=== PATIENT | male | born 1975 | race Caucasian/White ===

== ENCOUNTER 2024-07-07 08:13 | Day surgery (SDC) | payer OTHER ==
[~2024-07-07] VITALS: Ht 177.8 cm; Wt 96.5 kg
[~2024-07-07 08:13] MED LIST: Lactated Ringer's 1,000 ML IV ONE; propofoL 40 ML IV ONE
[2024-07-07] MEDS ORDERED: EZALLOR SPRINKL20 MG (08:56)
[2024-07-07] MEDS ORDERED: DEPO-TESTO200 MG/1 M (08:56)
[2024-07-07] MEDS ORDERED: Lactated Ringer's 1,000 ML IV ONE (09:25)
[2024-07-07 10:38] VITALS: BP 126/87
== END 2024-07-07 10:37 | disposition home or self-care (01) ==
LOC: ORSCSDS 08:13
PROVIDERS: Surgery
PROC: 0DBH8ZX Excision of Cecum, Via Natural or Artificial Opening Endoscopic, Diagnostic (ICD-10-PCS; principal; 2024-07-07 09:30)
DX: Z12.11 Encounter for screening for malignant neoplasm of colon (principal); D12.0 Benign neoplasm of cecum; K57.30 Diverticulosis of large intestine without perforation or abscess without bleeding; E78.00 Pure hypercholesterolemia, unspecified; Z79.82 Long term (current) use of aspirin; Z79.899 Other long term (current) drug therapy
CPT/HCPCS: 88305; J2704; J7120